=== PATIENT | male | born 1950 | race African-American/Black ===

== ENCOUNTER → 2017-12-14 | Outpatient (CLI) | payer MEDICARE, MEDICAID ==
[~2017-12-14] MED LIST: ACET-2128 PO; ALBU2.5V13 IH; ASCO-456 PO; ASPI-986 PO; BACL-141 PO; CLON0.1T PO; DIPH25CA83 PO; DOCU-150 PO; DULO60CA63 MT; FINA1TAB18 PO; FOLI-43 PO; GABA300C PO; HYDR-4009 PO; METH2.5T PO; MULT-1146 PO; NAPR-679 PO; ONDA4SOL2 PO; PRED2.5T4 PO; SENN-22 MT; TAMS0.4C31 PO
== END | disposition home or self-care (01) ==
LOC: MRI 10:26
PROVIDERS: ATTEND Neurological Surgery
DX: M48.02 Spinal stenosis, cervical region (principal); M25.78 Osteophyte, vertebrae; M06.9 Rheumatoid arthritis, unspecified
CPT/HCPCS: 72141